=== PATIENT | male | born 1990 | race Caucasian/White ===

== ENCOUNTER 2017-02-26 12:36 | Emergency (ER) | payer BC ==
[2017-02-26 12:54] VITALS: RESP 18; TEMP 98.2
--- NOTE | 2017-02-26 13:37 | RAD ---
PROCEDURE: Radiographs of the Right Shoulder HISTORY: fall COMPARISON: No prior. FINDINGS: BONES: Normal. No fracture. JOINTS: Dislocation right acromioclavicular joint. SOFT TISSUES: Soft tissue swelling of tests to the acuity of this posttraumatic finding. OTHER FINDINGS: None. IMPRESSION: Acute dislocation of the right acromioclavicular joint. No fracture identified. Soft tissue swelling attests to the acuity of the traumatic event and attendant findings.
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
[2017-02-26 13:59] VITALS: BP 132/75; PULSE 75
[2017-02-26 14:10] VITALS: O2SAT 99
== END 2017-02-26 13:57 | disposition home or self-care (01) ==
LOC: SUPCPDRO 12:36 → C.ER 12:36
DX: S43.101A Unspecified dislocation of right acromioclavicular joint, initial encounter (principal); V19.3XXA Pedal cyclist (driver) (passenger) injured in unspecified nontraffic accident, initial encounter; Y93.55 Activity, bike riding